=== PATIENT | male | born 1980 | race Caucasian/White ===

== ENCOUNTER 2016-12-22 14:48 | Emergency (ER) | payer MEDICAID, OTHER ==
[2016-12-22 14:53] VITALS: RESP 18; TEMP 97.9; O2SAT 98
--- NOTE | 2016-12-22 15:25 | C.PDOC ---
History Of Present Illness 36 yo male come in for evaluation of Right shoulder pain gradually developed for past 2-3 days " after pulled at work". Pt reports, pain is localized, non- radiating, worse with shoulder movement. Pt denies deformity, neck pain, CP, SOB , dyspnea, diaphoresis, palpitation, sensory or vascular deficits to Right arm. Ambulate to ED for evaluation, not in nay apparent distress. Time Seen by Provider: 12/22/16 14:56 Chief Complaint (Nursing): Upper Extremity Problem/Injury History Per: Patient Onset/Duration Of Symptoms: Gradual Current Symptoms Are (Timing): Still Present Past Medical History Reviewed: Historical Data Vital Signs: Last Vital Signs Temp 97.9 F 12/22/16 14:51 Pulse 74 12/22/16 14:51 Resp 18 12/22/16 14:51 BP 132/78 12/22/16 14:51 Pulse Ox 98 12/22/16 14:51 Surgical History: Appendectomy Family History: States: No Known Family Hx - Social History Hx Alcohol Use: No Hx Substance Use: No - Immunization History Hx Influenza Vaccination: No Review Of Systems Except As Marked, All Systems Reviewed And Found Negative. Cardiovascular: Negative for: Chest Pain Musculoskeletal: Positive for: Shoulder Pain. Negative for: Neck Pain, Back Pain Skin: Negative for: Bruising Physical Exam - Physical Exam Appears: Well, Non-toxic, No Acute Distress Skin: Normal Color, Warm, No Rash, No Ecchymosis Head: Normacephalic Neck: Normal ROM, Trachea Midline, No Midline Cervical Tenderness, No Paracervical Tenderness, No Step Off Deformity, Supple Extremity: Normal ROM, Tenderness (mild tenderness over superior aspect Right shoulder overlying Ac joint. No palpable deformity,. no skin changes.), No Deformity, No Swelling Neurological/Psych: Oriented x3, Normal Speech, Normal Motor, Normal Sensation, Normal Reflexes ED Course And Treatment O2 Sat by Pulse Oximetry: 98 Pulse Ox Interpretation: Normal - Other Rad Right shoulder X-Ray: Read By Radiologist Interpretation: no acute fx or dislocation Progress Note: On re-eavl, pt is afebrile, hemodynamicaly stable. Non-toxic. PulsEOx 100% RA. Right shoulder: exam c/w sprain. FAROM, no neurovascular deficits. Xray review and appears noraml. Sling applied, analgesics. Pt advised. ref. to f/u with ortho in 2-3 days for re-eval. return if any new changes. Disposition Counseled Patient/Family Regarding: Studies Performed, Diagnosis, Need For Followup, Rx Given - Disposition Disposition: HOME/ ROUTINE Disposition Time: 15:37 Condition: STABLE Additional Instructions: Sling for 1 week Light duty to Right arm/shoulder for 1 week take pain medication as need Follow up with Orthopedist in 2-3 days for re-evaluation. Return to ED if any worsening or new changes. Prescriptions: traMADol [Ultram] 50 mg PO TID #7 tab Instructions: Shoulder Sprain (ED) Forms: Work Excuse Print Language: THAI - Clinical Impression Clinical Impression: Shoulder strain
--- NOTE | 2016-12-22 15:38 | RAD ---
PROCEDURE: Radiographs of the Right Shoulder HISTORY: injury COMPARISON: None available. FINDINGS: Limited scapular Y-view. BONES: No acute displaced fracture. The distal clavicle and underlying ribs appear intact. JOINTS: No acute dislocation. SOFT TISSUES: Soft tissues appear unremarkable. No evidence of radiopaque foreign body. IMPRESSION: No acute displaced fracture or dislocation evident. If symptoms persist or if there is continued clinical concern, x-ray follow-up in 7-10 days should be considered.
[2016-12-22 16:05] VITALS: BP 124/75; PULSE 75
== END 2016-12-22 16:05 | disposition home or self-care (01) ==
LOC: C.ER 14:48
DX: S46.911A Strain of unspecified muscle, fascia and tendon at shoulder and upper arm level, right arm, initial encounter (principal); X58.XXXA Exposure to other specified factors, initial encounter

== ENCOUNTER 2017-05-31 13:54 | Emergency (ER) | payer OTHER ==
[2017-05-31 14:04] VITALS: BP 129/87; PULSE 81; RESP 20; TEMP 98.6; O2SAT 96
[2017-05-31 15:31] LABS: RBC URINE 9 /hpf (0-3); URINE BILIRUBIN NEGATIVE (NEGATIVE); URINE COLOR Amber (YELLOW); URINE GLUCOSE (UA) NORMAL (Normal); URINE KETONE NEGATIVE (NEGATIVE); URINE LEUKOCYTE ESTERASE NEG Leu/uL (Negative); URINE PROTEIN NEGATIVE (NEGATIVE); URINE UROBILINOGEN NORMAL mg/dL (0.2-1.0)
[2017-05-31 15:34] LABS: URINE BLOOD TRACE (NEGATIVE)
[2017-05-31] MEDS ORDERED: Naproxen 550 mg Tab PO STA (15:40)
[2017-05-31] MEDS ORDERED: Naproxen 550 mg Tab PO ONE (15:48)
--- NOTE | 2017-05-31 15:50 | C.PDOC ---
History Of Present Illness Pt c/o perineum pain. Time Seen by Provider: 05/31/17 14:27 Chief Complaint (Nursing): Male Genitourinary History Per: Patient Onset/Duration Of Symptoms: Days (about 3 weeks), Intermittent Episodes Current Symptoms Are (Timing): Still Present Severity: Moderate Quality Of Discomfort: Cramping (?) Alleviating Factors: None Additional History Per: Prior Records Past Medical History Reviewed: Historical Data, Nursing Documentation, Vital Signs Vital Signs: Last Vital Signs Temp 98.6 F 05/31/17 14:03 Pulse 81 05/31/17 14:03 Resp 20 05/31/17 14:03 BP 129/87 05/31/17 14:03 Pulse Ox 96 05/31/17 14:03 - Medical History PMH: HTN Surgical History: Appendectomy Family History: States: Unknown Family Hx - Social History Hx Alcohol Use: No Hx Substance Use: No - Immunization History Hx Influenza Vaccination: No Review Of Systems Except As Marked, All Systems Reviewed And Found Negative. Constitutional: Negative for: Fever, Weakness Cardiovascular: Negative for: Chest Pain Respiratory: Negative for: Shortness of Breath Gastrointestinal: Negative for: Vomiting, Abdominal Pain, Diarrhea Genitourinary: Negative for: Dysuria, Penile Discharge Musculoskeletal: Negative for: Neck Pain, Back Pain Skin: Negative for: Rash Neurological: Negative for: Weakness, Numbness Physical Exam - Physical Exam Appears: Non-toxic, No Acute Distress Skin: Normal Color, Warm, Dry, No Rash Head: Atraumatic, Normacephalic Eye(s): bilateral: Normal Inspection, PERRL, EOMI Neck: Normal ROM, Supple Cardiovascular: Rhythm Regular Respiratory: Normal Breath Sounds, No Accessory Muscle Use Gastrointestinal/Abdominal: Soft, No Tenderness Rectal: Rectal Tone (wnl), No Mass, Other (Prostate not enlarged, possible slight discomfort with exam) Back: No CVA Tenderness Male Genital: No Testicular Tenderness, No Testicular Swelling, No Inguinal Tenderness, No Inguinal Swelling, No Scrotal Swelling Extremity: Normal ROM Neurological/Psych: Oriented x3, Normal Motor, Normal Sensation ED Course And Treatment - Laboratory Results Interpretation Of Abnormal: Microscopic hematuria. O2 Sat by Pulse Oximetry: 96 Pulse Ox Interpretation: Normal Reassessment Condition: Improved Disposition Counseled Patient/Family Regarding: Studies Performed, Diagnosis, Need For Followup, Rx Given - Disposition Referrals: [facility] [Outside] Disposition: HOME/ ROUTINE Disposition Time: 15:54 Condition: STABLE Additional Instructions: Drink plenty of fluids. Follow up in the clinic within 1-2 weeks for further evaluation and treatment. Return to the ER if you develop fever, abdominal pain , testicle pain or swelling, worsening of symptoms or if you have any other concerns. Prescriptions: Naproxen [Naprosyn] 1 tab PO BID PRN #20 tab PRN Reason: Pain Instructions: Pelvic Pain in Men (ED) Forms: [place] ([place]) Print Language: ROMANIAN - Clinical Impression Clinical Impression: Perineum pain, male
== END 2017-05-31 16:01 | disposition home or self-care (01) ==
LOC: C.ER 13:54
DX: R10.2 Pelvic and perineal pain (principal)